=== PATIENT | female | born 1995 | race African-American/Black ===

== ENCOUNTER 2024-03-05 23:57 | Emergency (ER) | payer MEDICAID, OTHER ==
[~2024-03-05] VITALS: Ht 152.4 cm; Wt 97.7 kg
[2024-03-06 00:05] VITALS: BP 126/80; PULSE 114; RESP 18; O2SAT 97
[2024-03-06] MEDS: KETOROLAC TROMETH 60MG/2ML VIAL IM ONE (02:16)
[2024-03-06] MEDS: HYDROcodone-ACET 5/325MG TAB PO ONE (02:17)
[2024-03-06] MEDS ORDERED: IBUP-1455 PO (02:38)
[2024-03-06] MEDS ORDERED: ACET500T58 PO (02:38)
== END 2024-03-06 03:18 | disposition home or self-care (01) ==
LOC: EDBD 23:57 → ER 03-06 00:05
DX: S16.1XXA Strain of muscle, fascia and tendon at neck level, initial encounter (principal); S30.0XXA Contusion of lower back and pelvis, initial encounter; S09.90XA Unspecified injury of head, initial encounter; Z88.0 Allergy status to penicillin; Z88.1 Allergy status to other antibiotic agents; Z88.6 Allergy status to analgesic agent; Y04.2XXA Assault by strike against or bumped into by another person, initial encounter; Y93.89 Activity, other specified; Y92.89 Other specified places as the place of occurrence of the external cause; Y99.8 Other external cause status
CPT/HCPCS: 70450; 72125; 72128; 96372; 99285; J1885